=== PATIENT | male | born 1945 | race Caucasian/White ===

== ENCOUNTER 2016-09-06 05:30 | Inpatient (IN) | payer MEDICARE, OTHER ==
[~2016-09-06 05:30] MED LIST: AMIODARONE HCL200 M1 PO; AMOXICILLIN875 M1 PO; CARAFATE1 G2 PO; COMBIVENT RESPIM4 G1 IH; COUMADIN7.5 M1 PO; CYCLOBENZAPRINE5 M1 PO; FLECAINIDE ACE100 M1 PO; FLOMAX0.4 M1 PO; HYDROCODON-ACE1 EA15 PO; INDOMETHACIN50 M1 PO; IPRAT-ALBUT 0.5-3 ML NEB; ISOSORBIDE MONO60 M3 PO; MOBIC15 M2 PO; NEURONTIN300 M1 PO; NORVASC5 M2 PO; PRAVASTATIN SOD20 M1 PO; PRINIVIL20 M1 PO; PROTONIX40 M2 PO; RANEXA500 M1 PO; SYMBICORT 160-1 PUFF INH; TOPROL XL25 M1 PO; VENLAFAXINE HCL75 M3 PO; WARFARIN PO; XALATAN2.5 M1 EACH EYE; ZOLOFT50 M1 PO
[2016-09-06 07:41] LABS: PROTHROMBIN TIME 12.1 SECONDS (9.0-13.6)
[2016-09-07] MEDS ORDERED: ZANAFLEX4 M2 PO (14:58)
[2016-09-07] MEDS ORDERED: SENNA PLUS TAB1 EAC1 PO (14:59)
== END 2016-09-07 16:00 | DRG 516 ==
LOC: SHSC 05:30 → PACU 12:17 → 5EB 13:29
PROVIDERS: ADMIT Orthopaedic Surgery
PROC: 0QB00ZZ Excision of Lumbar Vertebra, Open Approach (ICD-10-PCS; principal; 2016-09-06)
PROC: 01NB0ZZ Release Lumbar Nerve, Open Approach (ICD-10-PCS; 2016-09-06)
DX: M47.26 Other spondylosis with radiculopathy, lumbar region (principal); I50.32 Chronic diastolic (congestive) heart failure; I11.0 Hypertensive heart disease with heart failure; I95.9 Hypotension, unspecified; I11.9 Hypertensive heart disease without heart failure; R00.1 Bradycardia, unspecified; G62.9 Polyneuropathy, unspecified; I48.0 Paroxysmal atrial fibrillation; J44.9 Chronic obstructive pulmonary disease, unspecified; M48.06 Spinal stenosis, lumbar region; M51.26 Other intervertebral disc displacement, lumbar region; I73.9 Peripheral vascular disease, unspecified; H40.9 Unspecified glaucoma; Z86.73 Personal history of transient ischemic attack (TIA), and cerebral infarction without residual deficits; M19.90 Unspecified osteoarthritis, unspecified site; E78.5 Hyperlipidemia, unspecified; I25.10 Atherosclerotic heart disease of native coronary artery without angina pectoris; G47.33 Obstructive sleep apnea (adult) (pediatric); N40.0 Benign prostatic hyperplasia without lower urinary tract symptoms; F41.9 Anxiety disorder, unspecified; E78.00 Pure hypercholesterolemia, unspecified; F17.210 Nicotine dependence, cigarettes, uncomplicated; G89.4 Chronic pain syndrome; Z79.02 Long term (current) use of antithrombotics/antiplatelets
CPT/HCPCS: C8929; J0690; J2250; J7040